=== PATIENT | female | born 1985 | race African-American/Black ===

== ENCOUNTER 2017-03-25 20:46 | Emergency (ER) | payer OTHER ==
[2017-03-25 21:02] VITALS: BP 118/73; PULSE 87; TEMP 99.1; BMI 20.7
--- NOTE | 2017-03-25 21:02 | PDOC ---
Rapid Medical Evaluation Time Seen by Provider: 03/25/17 20:54 Medical Evaluation: Allergies Allergy/AdvReac Type Severity Reaction Status Date / Time No Known Allergies Allergy Verified 06/19/15 09:51 03/25/17 20:54 I have performed a brief in-person evaluation of this patient. The patient presents with a chief complaint of: chest pain x 1 week, SOB, dry cough, headache, fatigue x 1 week. Sneezing today. Denies fever but +chills. Denies nausea, vomiting, diarrhea +use of hormonal contraceptive (depo) Pertinent physical exam findings: lungs ctab I have ordered the following: EKG, CXR The patient will proceed to the ED for further evaluation. Discharge Disposition - Diagnosis Chest pain - Referrals Referrals: Manuel Lynn MD [Primary Care Provider] - - Patient Instructions - Post Discharge Activity
--- NOTE | 2017-03-25 21:48 | PDOC ---
History of Present Illness <Meena Campbell - Last Filed: 03/26/17 00:16> - General History Source: Patient Exam Limitations: No Limitations - History of Present Illness Initial Comments: 03/26/17 01:47 Patient is a 31 year old female with no significant past medical history who presents to the ED with complaints of of chest pain that began thursday afternoon. Patient reports experiencing intermittent chest pain as well as dry cough since thursday afternoon, that has shown no signs of subsiding. She reports experiencing increased pain with cough as well as runny nose. Patient reports she did receive this years flu shot. Denies sore throat, sob. Denies fevers, chills. Denies nausea, vomiting. Denies contact with sick individuals, out of state travelling. Denies any other symptoms. 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 No alcohol. No illicit drugs. Surgical history: None PMD: Dr. Lynn <Paulo Hendrix - Last Filed: 03/26/17 01:48> - General Chief Complaint: Chest Pain Stated Complaint: CHEST PAIN,SOB Time Seen by Provider: 03/25/17 20:54 Past History - Past Medical History Asthma: Yes COPD: No - Suicide/Smoking/Psychosocial Hx Smoking History: Never smoked Have you smoked in the past 12 months: No Number of Cigarettes Smoked Daily: 1 Information on smoking cessation initiated: No Hx Alcohol Use: No Drug/Substance Use Hx: No Substance Use Type: None <Meena Campbell - Last Filed: 03/26/17 00:16> <Paulo Hendrix - Last Filed: 03/26/17 01:48> - Past Medical History Allergies/Adverse Reactions: Allergies Allergy/AdvReac Type Severity Reaction Status Date / Time No Known Allergies Allergy Verified 03/26/17 00:16 Home Medications: Ambulatory Orders Ibuprofen [Motrin -] 600 mg PO TID PRN #15 tablet 03/26/17 Review of Systems - Review of Systems Able to Perform ROS?: Yes Comments:: 03/26/17 01:47 GENERAL/CONSTITUTIONAL: No fever or chills. No weakness. HEAD, EYES, EARS, NOSE AND THROAT: No change in vision. No ear pain or discharge. No sore throat. GASTROINTESTINAL: No nausea, vomiting, diarrhea or constipation. GENITOURINARY: No dysuria, frequency, or change in urination. CARDIOVASCULAR: No chest pain or shortness of breath. RESPIRATORY: No cough, wheezing, or hemoptysis. MUSCULOSKELETAL: No joint or muscle swelling or pain. No neck or back pain. SKIN: No rash NEUROLOGIC: No headache, vertigo, loss of consciousness, or change in strength/ sensation. ENDOCRINE: No increased thirst. No abnormal weight change. HEMATOLOGIC/LYMPHATIC: No anemia, easy bleeding, or history of blood clots. ALLERGIC/IMMUNOLOGIC: No hives or skin allergy. All Other Systems: Reviewed and Negative <Paulo Hendrix - Last Filed: 03/26/17 01:48> *Physical Exam - Vital Signs Last Vital Signs Temp Pulse Resp BP Pulse Ox 99.1 F 87 18 118/73 100 03/25/17 20:54 03/25/17 20:54 03/25/17 20:54 03/25/17 20:54 03/25/17 20:54 <Meena Campbell - Last Filed: 03/26/17 00:16> - Vital Signs Last Vital Signs Temp Pulse Resp BP Pulse Ox 99.1 F 87 18 118/73 100 03/25/17 20:54 03/25/17 20:54 03/25/17 20:54 03/25/17 20:54 03/25/17 20:54 - Physical Exam Comments: 03/26/17 01:47 GENERAL: Awake, alert, and fully oriented, in no acute distress HEAD: No signs of trauma EYES: PERRLA, EOMI, sclera anicteric, conjunctiva clear ENT: Auricles normal inspection, hearing grossly normal, nares patent, oropharynx clear without exudates. Moist mucosa NECK: Normal ROM, supple, no lymphadenopathy, JVD, or masses LUNGS: +Soft expiratory wheeze. Breath sounds equal, clear to auscultation bilaterally. No wheezes, and no crackles HEART: Regular rate and rhythm, normal S1 and S2, no murmurs, rubs or gallops CHEST: +Anterior chest wall discomfort that reproduced pain. ABDOMEN: Soft, nontender, normoactive bowel sounds. No guarding, no rebound. No masses EXTREMITIES: Normal range of motion, no edema. No clubbing or cyanosis. No cords, erythema, or tenderness NEUROLOGICAL: Cranial nerves II through XII grossly intact. Normal speech, normal gait SKIN: Warm, Dry, normal turgor, no rashes or lesions noted. <Paulo Hendrix - Last Filed: 03/26/17 01:48> ED Treatment Course - ADDITIONAL ORDERS Additional order review: Laboratory Results 03/25/17 22:15 Beta HCG, Quant 11.1 03/25/17 22:15 Influenza Types A,B Antigen (JAROD) - Final Nasopharyngeal Swab - Final - Medications Given in the ED: ED Medications Discontinued Medications Generic Name Dose Route Start Last Admin Trade Name Judie PRN Reason Stop Dose Admin Acetaminophen 975 mg 03/25/17 21:53 03/25/17 22:35 Tylenol - PO 03/25/17 21:54 975 mg ONCE ONE Administration Albuterol/Ipratropium 1 amp 03/25/17 21:53 03/25/17 22:35 Duoneb - NEB 03/25/17 21:54 1 amp ONCE ONE Administration Ketorolac Tromethamine 60 mg 03/25/17 21:53 03/25/17 22:35 Toradol Injection - IM 03/25/17 21:54 60 mg ONCE ONE Administration <Paulo Hendrix - Last Filed: 03/26/17 01:48> Medical Decision Making - Medical Decision Making 03/25/17 22:44 a/p: 31yo female with cp when coughing -rhinorrhea -suspect flu vs viral flu like illness -will check cxr -neb -flu swab -nontoxic in appearance -anterior chest wall ttp - most likely from coughing 03/26/17 00:08 cxr clear pt with flu b stable for d/c to home nontoxic in appearance symptoms since thursday so not a candidate for tamiflu will give work note since she works in a [employer]. discussed all lab and imaging results pt is stable for d/c to home 03/26/17 00:11 pt with elevated beta hcg - will need it repeated in 2 days on depo provera 03/26/17 00:16 pt with a miscarriage in february. had ultrasound at her OB office that showed an empty uterus per the patient. received the depo shot after the miscarriage. states they have been trending her beta hcg will follow up with her ob.diagnostics tech for a repeat beta again to show continued decreasing hcg <Meena Campbell Last Filed: 03/26/17 00:16> *DC/Admit/Observation/Transfer - Discharge Dispostion Admit: No - Attestations Physician Attestion: 03/26/17 00:10 I, Dr. Meena Campbell DO, attest that this document has been prepared under my direction and personally reviewed by me in its entirety. I further attest, that it accurately reflects all work, treatment, procedures and medical decision -making performed by me. <Meena Campbell - Last Filed: 03/26/17 00:16> - Attestations Scribe Attestion: 03/26/17 01:48 Documentation prepared by Paulo Hendrix, acting as certified medical records coder for Meena Campbell DO, MD/. <Paulo Hendrix - Last Filed: 03/26/17 01:48> Diagnosis at time of Disposition: Chest pain, Influenza B - Discharge Dispostion Disposition: HOME Condition at time of disposition: Stable - Prescriptions Prescriptions: Ibuprofen [Motrin -] 600 mg PO TID PRN #15 tablet PRN Reason: Pain - Referrals Referrals: Manuel Lynn MD [Primary Care Provider] - - Patient Instructions Printed Discharge Instructions: DI for Atypical Chest Pain, DI for Influenza - - Adult Additional Instructions: Please drink plenty of fluids. Please make an appointment to follow up with your PMD. Please take tylenol or motrin for the pain. Please return to the ED with any further concerns. Please have your beta hcg repeated in 2 days. - Post Discharge Activity Forms/Work/School Notes: Back to Work
[2017-03-25] MEDS ORDERED: KETOROLAC TROMETHAMINE 30 MG/1 ML VIAL IM ONE (21:53)
[2017-03-25] MEDS ORDERED: ALBUTEROL SO4 2.5/IPRATROPIUM 0.5 INH SOL 3 ML VIAL.NEB. NEB ONE ×2 (21:53→22:24)
[2017-03-25] MEDS ORDERED: ACETAMINOPHEN 325 MG TABLET (FP) PO ONE (21:53)
[2017-03-25] MEDS ORDERED: ACETAMINOPHEN 325 MG TABLET (FP) ONE (22:24)
[2017-03-25] MEDS ORDERED: KETOROLAC TROMETHAMINE 60 MG/2 ML VIAL ONE (22:24)
[2017-03-25] MEDS ORDERED: METOCLOPRAMIDE HCL INJECTION 10 MG/2 ML VIAL ONE (22:26)
[2017-03-25] MEDS ORDERED: MAG HYDROX/AL HYDROX/SIMETH 30 ML UNIT-DOSE CUP ONE (22:26)
[2017-03-25] MEDS ORDERED: CEPHALEXIN MONOHYDRATE 250 MG CAPSULE (FP) ONE (22:26)
[2017-03-25] MEDS ORDERED: FAMOTIDINE 20 MG/50 ML IVPB 20 MG/50 ML MG IVPB ONE (22:27)
--- NOTE | 2017-03-27 10:12 | EKG ---
Test Reason : Blood Pressure : / mmHG Vent. Rate : 085 BPM Atrial Rate : 085 BPM P-R Int : 156 ms QRS Dur : 070 ms QT Int : 354 ms P-R-T Axes : 074 078 057 degrees QTc Int : 421 ms NORMAL SINUS RHYTHM POSSIBLE LEFT ATRIAL ENLARGEMENT BORDERLINE ECG NO PREVIOUS ECGS AVAILABLE Confirmed by MD NAOMI, PHIL ([id number]) on 03/27/2017 10:12:14 AM Referred By: Confirmed By:PHIL SALGADO MD
== END 2017-03-26 00:29 | disposition home or self-care (01) ==
LOC: JER 20:46
PROC: 3E0F7GC Introduction of Other Therapeutic Substance into Respiratory Tract, Via Natural or Artificial Opening (ICD-10-PCS; principal; 2017-03-25)
PROC: 3E0233Z Introduction of Anti-inflammatory into Muscle, Percutaneous Approach (ICD-10-PCS; 2017-03-25)
DX: J10.1 Influenza due to other identified influenza virus with other respiratory manifestations (principal); R07.9 Chest pain, unspecified
CPT/HCPCS: 36415; 71046-TC; 84702; 87804; 93005; 93010; 99283-25

== ENCOUNTER 2019-03-29 11:36 | Day surgery (SDC) | payer OTHER ==
[2019-03-29 12:10] VITALS: BMI 21.6
[2019-03-29 13:20] LABS: BASO % 1.1 % (0-2.0); EOS % 5.3 % (0-4.5); HEMATOCRIT 37.3 % (32.4-45.2); HEMOGLOBIN 12.6 GM/dL (10.7-15.3); LYMPH % 35.7 % (8-40); MCH 31.7 pg (25.7-33.7); MCHC 33.7 g/dl (32.0-36.0); MEAN CELL VOLUME 93.9 fl (80-96); MEAN PLT VOLUME 6.7 fl (7.5-11.1); MONO % 9.2 % (3.8-10.2); NEUT % 48.7 % (42.8-82.8); PLATELET COUNT 287 K/MM3 (134-434); RBC 3.97 M/mm3 (3.60-5.2); RDW 13.1 % (11.6-15.6); WHITE BLOOD COUNT 5.2 K/mm3 (4.0-10.0)
--- NOTE | 2019-03-29 13:34 | PDOC ---
History of Present Illness - General Chief Complaint: Pain Stated Complaint: 6WKS/ CRAMPING Time Seen by Provider: 03/29/19 12:37 - History of Present Illness Initial Comments: 03/29/19 13:28 Ms. Lockett is a 33y/o 6 weeks who presents with intermittent abdominal cramping x 4 days. She was going for a surgical today and was found on U/S to have a right side ectopic . Last LMP was February 09. She reports nausea, vomiting, breast tenderness. She denies fever, chills. Pt had spotting for 2 days about 2 weeks ago. She has hx of chlamydia but no PID. She is not on BC or IUD. Past History - Past Medical History Allergies/Adverse Reactions: Allergies Allergy/AdvReac Type Severity Reaction Status Date / Time No Known Allergies Allergy Verified 03/29/19 12:06 Home Medications: Ambulatory Orders Acetaminophen [Tylenol .Regular Strength -] 500 mg PO Q4H PRN #30 tablet Ibuprofen [Motrin -] 600 mg PO QID #28 tablet 03/30/19 Asthma: Yes COPD: No - Surgical History Abdominal Surgery: No - Family Medical History Other Family History: sister- ectopic - Reproductive History Is Patient Now?: Yes (#): 8 Para: 1 - Psycho Social/Smoking Cessation Hx Smoking History: Never smoked Have you smoked in the past 12 months: No Number of Cigarettes Smoked Daily: 1 Hx Alcohol Use: No Drug/Substance Use Hx: No Substance Use Type: None *Physical Exam - Vital Signs Last Vital Signs Temp Pulse Resp BP Pulse Ox 98.2 F 75 17 102/58 L 100 03/29/19 12:06 03/29/19 12:06 03/29/19 12:06 03/29/19 12:06 03/29/19 12:06 - Physical Exam General Appearance: Yes: Nourished, Appropriately Dressed HEENT: positive: EOMI, SUSIE, Normal Voice Neck: positive: Trachea midline, Supple Respiratory/Chest: positive: Lungs Clear Cardiovascular: positive: Regular Rhythm, Regular Rate. negative: Murmur Gastrointestinal/Abdominal: positive: Normal Bowel Sounds. 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 Lockett is a 33y/o 6 weeks who presents with intermittent abdominal cramping x 4 days. Vital signs stable, A&Ox3. R/O ectopic vs less likely gastroenteritis. TVUS, labs, and EKG ordered. 03/29/19 15:16 TVUS shows right adnexal ectopic with free fluid. Ruptured cannot be excluded. Spoke to Dr. Alegre, and she will see the pt. 03/29/19 17:15 Pt was evaluated by Dr. Alegre and determined to need surgical evaluation. She accepted pt to her service and sent to OR. Discharge - Discharge Information Problems reviewed: Yes Clinical Impression/Diagnosis: Ectopic Qualifiers: Location of ectopic : tubal Intrauterine status: without intrauterine Laterality: unspecified laterality Qualified Code(s): O00.109 - Unspecified tubal without intrauterine Condition: Stable Disposition: HOME - Additional Discharge Information - Follow up/Referral - Patient Discharge Instructions - Post Discharge Activity
[2019-03-29 13:46] LABS: ALBUMIN 4.2 g/dl (3.4-5.0); BILIRUBIN,TOTAL 0.5 mg/dL (0.2-1); BLOOD UREA NITROGEN 4.6 mg/dL (7-18); CALCIUM 8.9 mg/dL (8.5-10.1); CREATININE 0.6 mg/dL (0.55-1.3); POTASSIUM 3.4 mmol/L (3.5-5.1); TOT PROT 7.7 g/dl (6.4-8.2)
[2019-03-29 13:46] LABS: PH,URINE 6.5 (5.0-8.0); URINE APPEARANCE CLEAR; URINE BILIRUBIN NEGATIVE (NEGATIVE); URINE COLOR YELLOW; URINE GLUCOSE (UA) NEGATIVE (NEGATIVE); URINE KETONE 1+ (NEGATIVE); URINE LEUK ESTERASE NEGATIVE (NEGATIVE); URINE NITRITE NEGATIVE (NEGATIVE); URINE PROTEIN TRACE (NEGATIVE)
--- NOTE | 2019-03-29 14:21 | PDOC ---
Documentation entered by Syed Saab SCRIBE, acting as scribe for Axel Casarez MD. Axel Casarez MD: This documentation has been prepared by the [employer], SCRIBE, under my direction and personally reviewed by me in its entirety. I confirm that the documentation accurately reflects all work, treatment, procedures, and medical decision making performed by me. Attending Attestation - Resident Resident Name: StacieAdeline - ED Attending Attestation I have performed the following: I have examined & evaluated the patient, The case was reviewed & discussed with the resident, I agree w/resident's findings & plan, Exceptions are as noted - HPI HPI: 03/29/19 13:29 The patient is a 33 year old female, A7, currently 6 weeks with no significant PMH of who presents to the emergency department for abdominal cramping. Pt states she went to the clinic today and US showed R ectopic . Pt denies any vaginal bleeding or discharge. The patient denies chest pain, shortness of breath, headache and dizziness. Denies fever, chills, cough, nausea, vomiting, diarrhea and constipation. Denies dysuria, frequency, urgency and hematuria. 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 No alcohol. No illicit drugs. PCP: Dr. Sol - Physicial Exam PE: 03/29/19 13:30 GENERAL: Awake, alert, and fully oriented, in no acute distress. HEAD: No signs of trauma EYES: PERRLA, EOMI, sclera anicteric, conjunctiva clear ENT: Auricles normal inspection, hearing grossly normal, nares patent, oropharynx clear without exudates. Moist mucosa NECK: Nontender, no stepoffs, Normal ROM, supple, no lymphadenopathy, JVD, or masses LUNGS: Breath sounds equal, clear to auscultation bilaterally. No wheezes, and no crackles HEART: Regular rate and rhythm, normal S1 and S2, no murmurs, rubs or gallops ABDOMEN: + suprapubic TTP, normoactive bowel sounds. No guarding, no rebound. No masses EXTREMITIES: Normal range of motion, no edema. No clubbing or cyanosis. No cords, erythema, or tenderness NEUROLOGICAL: Cranial nerves II through XII intact. 5/5 strength and sensation in all extremities, Normal speech, normal gait, normal cerebellar function SKIN: Warm, Dry, normal turgor, no rashes or lesions noted. - Medical Decision Making 03/29/19 14:22 33 F with possible R ectopic on outpt US. - Labs, HCG, T&S - TVUS - OB c/s 03/29/19 15:44 Labs notable for HCG 29153 TVUS shows R adnexal mass, likely ectopic, with free fluid, concerning for rupture Dr. Alegre consulted, will come to ED to evaluate pt. 03/29/19 16:[address] Alegre, who will take pt to OR
[2019-03-29 14:27] LABS: INR 1.11 (0.83-1.09); PROTHROMBIN TIME (PATIENT) 13.1 SEC (9.7-13.0)
[2019-03-29 14:30] LABS: ACTIVATED PTT 32.1 SECONDS (25.2-36.5)
[2019-03-29] MEDS ORDERED: DEXAMETHASONE SOD PHOSPHATE 4 MG/1 ML VIAL ONE (16:55)
[2019-03-29] MEDS ORDERED: fentaNYL CITRATE 250 MCG/5 ML VIAL ONE (16:55)
[2019-03-29] MEDS ORDERED: GLYCOPYRROLATE 0.2 MG/1 ML VIAL ONE ×5 (16:55→19:01)
[2019-03-29] MEDS ORDERED: ROCURONIUM BROMIDE 50 MG/5 ML SYRINGE ONE (16:55)
[2019-03-29] MEDS ORDERED: MIDAZOLAM HCL 2 MG/2 ML SINGLE DOSE VIAL ONE (16:55)
[2019-03-29] MEDS ORDERED: PROPOFOL 20 ML ONE ×3 (16:55→17:29)
[2019-03-29] MEDS ORDERED: LIDOCAINE HCL/PF 2% SDV 5ML VIAL ONE (16:55)
[2019-03-29] MEDS ORDERED: LIDOCAINE HCL 2% JELLY (5 ML/TUBE) ONE (16:55)
[2019-03-29] MEDS ORDERED: EPHEDRINE SULFATE/0.9% NACL/PF 50 MG/10 ML SYRINGE NR ONE (16:55)
--- NOTE | 2019-03-29 16:55 | CON.OBG ---
Consult Consult Specialty:: relations specialist Referred by:: Hermleindo/Kareem Reason for Consultation:: ectopic pregn rt side - History of Present Illness Chief Complaint: 33yrs , lmp 02/09/19 , 7 weeks gestation is diagnosed ectopic is beng taken for definitive treatment surgiclly History of Present Illness: pt went to [place] for , after ulrasound she was told she had ectopic , she was sent to nearest [facility] ED , she walked out from there & came to [facility] ED work up revealed Quant hcg 14, 254.8 sono done NO iup, em thick, 1 cm intramual fibroid 2.7x 2.5x 2 cm adnexa mass bet uterus & rt ovary , lt ovary normal, minmal fluid in cul desac Pa MH 28-30 days, reg cycle x 3-4 bleeding, no cramps Contraception None Pa Ob Hx G1 2005 7'1" in [facility] G2 & G3 Sp AB G4, G5 G6, G7 : 4 Ind AB early pregn STD h/o chlamydia in past - History Source History Provided By: Patient Limitations to Obtaining History: No Limitations - 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 No: Gastritis Renal/: No: UTI Reproductive: Yes: Ectopic (current pregn ). No: PID (declined) ...LMP: 02/09/19 ...: Yes ...: 8 ...Para: 1 Infectious Disease: Yes: STD's (h/o chlamydia in past ) Psych: No: Addictions, Anxiety, Bipolar, Depression, Panic, Psychosis, Schizophrenia, Other Musculoskeletal: Yes: Other (declines) ENT: Yes: Other (declines) Endocrine: Yes: Other (none ) - Past Surgical History Past Surgical History: Yes: None - Alcohol/Substance Use Hx Alcohol Use: Yes (wine 1-2 glasses twice a month) History of Substance Use: reports: Marijuana Date of Last Use: 03/28/19 (daily bid ) - Smoking History Smoking history: Never smoked Have you smoked in the past 12 months: No Aproximately how many cigarettes per day: 1 Home Medications - Allergies Allergies/Adverse Reactions: Allergies Allergy/AdvReac Type Severity Reaction Status Date / Time No Known Allergies Allergy Verified 03/29/19 12:06 - Home Medications Home Medications: Ambulatory Orders NK [No Known Home Medication] 03/29/19 Physical Exam-GANG KNIFE [employer]PER Vital Signs: Vital Signs Temperature 98.5 F 03/29/19 15:05 Pulse Rate 72 03/29/19 15:05 Respiratory Rate 18 03/29/19 15:05 Blood Pressure 101/64 03/29/19 15:05 O2 Sat by Pulse Oximetry (%) 100 03/29/19 15:05 Selected Entries 03/29/19 12:06 Weight 138 lb Laboratory Tests 03/29/19 03/29/19 03/29/19 12:55 13:06 13:06 PT with INR 13.10 H INR 1.11 H PTT (Actin FS) 32.1 AST 16 ALT 19 Beta HCG, Quant 09512.8 Constitutional: Yes: Anxious, Thin Eyes: Yes: WNL HENT: Yes: WNL Neck: Yes: WNL Cardiovascular: Yes: WNL Respiratory: Yes: WNL Gastrointestinal: Yes: WNL, Normal Bowel Sounds, Soft. No: Distention, Tenderness Renal/: Yes: WNL, . No: CVA Tenderness - Left, CVA Tenderness - Right , Vaginal Bleeding Pelvis: Yes: WNL External Genitalia: Yes: Normal Internal Exam Deferred: Yes Vaginal Exam: Yes: Normal Cervix: Yes: Normal. No: Cerv Motion Tenderness Uterus: Yes: Normal, Anteverted (deviated to left side) Adnexa: Not Palpable: Bilateral (not tender ) Breast(s): Yes: WNL Musculoskeletal: Yes: WNL Extremities: Yes: WNL. No: Calf Tenderness Edema: No Psychiatric: Yes: WNL, Alert, Oriented Labs: CBC, BMP 03/29/19 12:55 03/29/19 13:06 Laboratory Tests 03/29/19 03/29/19 03/29/19 12:55 12:55 13:06 PT with INR 13.10 H INR 1.11 H PTT (Actin FS) 32.1 AST ALT Beta HCG, Quant 94529.8 Urine Protein Trace Urine Glucose (UA) Negative Urine Ketones 1+ H 03/29/19 13:06 PT with INR INR PTT (Actin FS) AST 16 ALT 19 Beta HCG, Quant Urine Protein Urine Glucose (UA) Urine Ketones Problem List - Problems (1) Ectopic , tubal Code(s): O00.109 - UNSPECIFIED TUBAL WITHOUT INTRAUTERINE Qualifiers: Intrauterine status: without intrauterine Laterality: right Qualified Code(s): O00.101 - Right tubal without intrauterine Assessment/Plan 33 yrs , 7 weeeks gestation, us in favor of ectopic, no iup, rt adnexal 2.7cm mass, hcg 14, 254.8 pt does not meet the crtteria for methotrexate inj hence sugical management offerred r/b/a not ltd yo hemorrhage, infection, injury bladde, bowel ureter etc explained plan Laproscopy , Rt salpingectomy & necessary procedures
[2019-03-29] MEDS ORDERED: LACTATED RINGERS SOLUTION 1,000 ML/1,000 ML INFUS.BAG IV STA (17:07)
[2019-03-29] MEDS ORDERED: ONDANSETRON 4 MG/2 ML VIAL IVPUSH PRN (17:12)
[2019-03-29] MEDS ORDERED: oxyCODONE HCL 5 MG TABLET PO PRN ×2 (17:12)
[2019-03-29] MEDS ORDERED: ceFAZolin SODIUM 1 GM VIAL IVPB ONE (18:05)
[2019-03-29] MEDS ORDERED: BUPIVACAINE HCL/PF 0.5% (5 MG/ML) 30 ML VIAL IJ ONE (18:10)
[2019-03-29] MEDS ORDERED: NEOSTIGMINE METHYLSULFATE 0.5 MG/ML - 10 ML MDV ONE (18:44)
--- NOTE | 2019-03-29 19:27 | OP ---
Operative Note - Note: Operative Date: 03/29/19 Pre-Operative Diagnosis: Right Tubal Operation: D&C Laproscopy, Rt Salpingectomy Findings: ut bulky, uterocervical length 9cm em cavity curetted, no tissuse obtained zumi canula was inserted & removed at the end of procedure Lt Tube & ovary Normal Rt tube distended proximal ampullary & isthmic portion distended & bluish discoloration removed in entire length RT ovary normal Surgeon: Rosmery Alegre Senior Fire Protection Engineer: Olga Dayl (TRISHA) Anesthesiologist/PERLITE GRINDER: Farhat Gomez Anesthesia: General Specimens Removed: em sampling. Rt tube Estimated Blood Loss (mls): 10 Drains, Volume Out (mls): 75 Fluid Volume Replaced (mls): 1,000 (2 gm iv ancef was given ) Operative Report Dictated: Yes
[2019-03-29] MEDS ORDERED: KETOROLAC TROMETHAMINE 30 MG/1 ML VIAL ONE (19:35)
[2019-03-29] MEDS ORDERED: ACETAMINOPHEN 1000 MG/100 ML VIAL (NON FORMULARY) IVPB ONE (19:36)
[2019-03-29] MEDS ORDERED: KETOROLAC TROMETHAMINE 30 MG/1 ML VIAL IVPUSH ONE (19:36)
--- NOTE | 2019-03-29 19:38 | SURG ---
Surgery Advisor To Command In Combat Note Advisor To Command In Combat: Olga Daly PA-C Date of Service: 03/29/19 Diagnosis: Right Tubal Procedure: D&C Laproscopy, Rt Salpingectomy I was present for the entirety of the operative procedure. For further detail, please refer to operative report. Visit type - Case Type Case Type: ED Admission - Emergency Emergency Visit: Yes Care time: The patient presented to the Emergency Department on the above date and was hospitalized for further evaluation of their emergent condition. - New patient This patient is new to me today: Yes Date on this admission: 03/29/19
[2019-03-29] MEDS ORDERED: ACETAMINOPHEN 325 MG TABLET (FP) PO PRN (19:50)
[2019-03-29] MEDS: LACTATED RINGERS SOLUTION 1,000 ML IV SCH (20:45)
[2019-03-30] MEDS: LACTATED RINGERS SOLUTION 1,000 ML IV SCH ×2 (00:19→06:36)
--- NOTE | 2019-03-30 08:17 | DS ---
Physical Exam-AREA REPRESENTATIVE Vital Signs: Vital Signs Temperature 98.4 F 03/30/19 05:18 Pulse Rate 85 03/30/19 05:18 Respiratory Rate 18 03/30/19 05:18 Blood Pressure 100/52 L 03/30/19 05:18 O2 Sat by Pulse Oximetry (%) 98 03/29/19 23:12 Constitutional: Yes: Well Nourished, Other (pain scale 5-6/10) Eyes: Yes: WNL HENT: Yes: WNL Neck: Yes: WNL Cardiovascular: Yes: WNL Respiratory: Yes: WNL Gastrointestinal: Yes: WNL, Normal Bowel Sounds, Soft Renal/: Yes: WNL Edema: No Wound/Incision: Yes: Clean/Dry, Well Approximated, Steri Strips, Open to air Neurological: Yes: WNL ...Motor Strength: WNL Psychiatric: Yes: WNL Labs: CBC, BMP 03/29/19 12:55 03/29/19 13:06 Laboratory Tests 03/30/19 03/30/19 06:00 08:47 WBC 7.4 Hgb 11.3 Hct 32.9 Plt Count 264 Beta HCG, Quant 4642.7 Discharge Summary Problems reviewed: Yes Reason For Visit: ECTOPIC Current Active Problems Ectopic , tubal (Acute) Procedures: Principal: D&C , Laproscopic Rt Salpingectomy Hospital Course: uneventful Plan of Treatment: follow up in the clinic Condition: Stable - Instructions Diet, Activity, Other Instructions: Discharge Instructions * Out of Bed * RTC 2 weeks for f/u , call [phone] [place] [address]'s [facility] for follow up on Thursday04/12/[address] Alegre * Regular Diet * Julia Care * Avoid sex for 3 weeks If you experience excessive bleeding or fever over 101 degrees, call doctor, the clinic or go to the Emergency Room. Referrals: Manuel Lynn MD [Primary Care Provider] - Rosmery Alegre MD [Staff Physician] - Disposition: HOME - Home Medications Comprehensive Discharge Medication List: Ambulatory Orders Acetaminophen [Tylenol .Regular Strength -] 500 mg PO Q4H PRN #30 tablet Ibuprofen [Motrin -] 600 mg PO QID #28 tablet 03/30/19
[2019-03-30 09:35] LABS: BASO % 0.3 % (0-2.0); HEMATOCRIT 32.9 % (32.4-45.2); HEMOGLOBIN 11.3 GM/dL (10.7-15.3); LYMPH % 9.7 % (8-40); MCH 32.3 pg (25.7-33.7); MCHC 34.3 g/dl (32.0-36.0); MEAN CELL VOLUME 94.1 fl (80-96); MONO % 6.2 % (3.8-10.2); NEUT % 83.8 % (42.8-82.8); PLATELET COUNT 264 K/MM3 (134-434); RDW 12.8 % (11.6-15.6); WHITE BLOOD COUNT 7.4 K/mm3 (4.0-10.0)
--- NOTE | 2019-03-30 10:05 | EKG ---
Test Reason : Blood Pressure : / mmHG Vent. Rate : 070 BPM Atrial Rate : 070 BPM P-R Int : 136 ms QRS Dur : 074 ms QT Int : 386 ms P-R-T Axes : 000 073 042 degrees QTc Int : 416 ms NORMAL SINUS RHYTHM NORMAL ECG WHEN COMPARED WITH ECG OF 25-MAR-2017 20:52, NO SIGNIFICANT CHANGE WAS FOUND Confirmed by NIDA PURI MD ([id number]) on 03/30/2019 10:05:14 AM Referred By: Confirmed By:NIDA PURI MD
[2019-03-30 11:32] VITALS: BP 95/60; PULSE 82; TEMP 98.2
--- NOTE | 2019-03-30 18:14 | OP ---
DATE OF OPERATION: 03/29/2019 PREOPERATIVE DIAGNOSIS: Right tubal . POSTOPERATIVE DIAGNOSIS: Right tubal . OPERATION DONE: Dilation and curettage, laparoscopy, right salpingectomy. 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 Her hCG was 14, 254.8, and sonogram shows no IUP and the right side between over the ovary and uterus, right adnexa was 2.7 x 2 x 2.5 cm structure with fluid inside. There were no embryonic poles seen. There is small amount of free fluid into the cul-de-sac noted. Ectopic was diagnosis. DESCRIPTION OF PROCEDURE: Patient taken to the operating room table, and general anesthesia was given. Modified lithotomy position was given. Abdomen was painted with chloroprep , and pubis, perineum, vagina were painted with Betadine, was draped in usual manner. Pelvic examination was done. Uterus was anteverted, deviated to the left side. Adnexa was not palpable. Then weighted speculum was put. Anterior lip of the cervix and was held with a single-tooth tenaculum. Uterocervical length was 9 cm. Then, with a small curette, uterine cavity was curetted. Minimal tissue was obtained, sent to Pathology examination and then EDIE cannula was introduced into the uterine cavity. Tenaculum and weighted speculum were removed. Gibbs catheter was placed. Proceeded with the laparoscopy. Just below the umbilicus, small incision was made and Veress needle was introduced, and the CO2 was insufflated into the peritoneal cavity and then 5-mm trocar and cone cannula were introduced. Right side tubal was confirmed. From the left side, 5-mm trocar and cannula were introduced. On the right side, initially a 5 mm and then later on it was changed to 10-mm trocar and cannula. Pelvic viscera was inspected. The uterus was bulky. Left tube and ovary were normal. Right tube was distended from the stomach area to the proximal ampullary portion. It was distended and bluish discoloration, and the fimbria end was free and then right ovary was normal. The grasper was introduced from the right side, and the tube was held & ligature was introduced from the left portal.. Grasper was held just below the tubal free end and between the ovary, mesosalpinx was clamped, cauterized, and cut, and it was advanced. Then, from the proximal end, the tube was cauterized and cut. Just below the distended portion, the tube was cauterized and cut from the mesosalpinx, and the whole tube and entire length was thus freed. Hemostasis was verified. Irrigation was done and then Endo Catch was introduced from the right portal. The entire specimen of the right tube was removed along with Endo Catch. Then irrigation done. Hemostasis verified. Then Farhat-Alber introducer was placed from the opening and 0 Vicryl free tie was introduced, and it was tied. Then subcutaneous tissue was closed with 2-0 Vicryl, and the skin was closed with 4-0 Biosyn. Similarly, the left side deep stitches were taken with a 2-0 Vicryl, and the skin was approximated with a 4-0 Biosyn. The Steri-Strips were applied. Umbilical incision was closed with a 4- 0 Biosyn. Pressure dressing given and then EDIE cannula was removed. Gibbs output was 75 mL, and intraoperative urine output was 75 mL. She received 2 g of IV Ancef prior to the incision. She received 1000 mL of crystalloid solution during the surgery. She tolerated the procedure well and was transferred to the recovery room in stable condition. Joel [id number] MTDD
--- NOTE | 2019-03-31 09:22 | PATH ---
Surgical Pathology Report Patient Name: PRINCESS ARLEN [facility]. Rec. #: [id number] /Age/Gender: 1985 (Age: 33) / F Account: <[id number]> Location: [address] [place] [id number] Taken: 03/29/2019 Received: 03/30/2019 Reported: 03/31/2019 Physicians: Rosmery Alegre M.D. Specimen(s) Received A: ENDOMETRIAL CURETTINGS B: RIGHT FALLOPIAN TUBE Clinical History Ectopic No IUP, right adnexal (tubal) mass Final Diagnosis A. ENDOMETRIUM, CURETTING: HYPERSECRETORY ENDOMETRIUM AND BENIGN ENDOCERVICAL EPITHELIUM. NO ENDOMETRIAL HYPERPLASIA OR CARCINOMA IDENTIFIED. B. RIGHT FALLOPIAN TUBE, SALPINGECTOMY: ECTOPIC (TUBAL) AND BENIGN SEROUS PARATUBAL CYST. Electronically Signed Daniel Lujan M.D. Gross Description A. Received in formalin labeled "endometrial curettings," is a 1.8 x 1.3 x 0.3 cm aggregate of ball-red soft tissue fragments admixed with mucus. The formalin is filtered and the specimen is entirely submitted in one cassette. B. Received in formalin labeled "right fallopian tube," is a 5 cm in length buckner purple, focally dilated portion of fallopian tube. The fimbria are separately received within the same container and display a 0.6 cm greatest dimension attached paratubal cyst. Sectioning of the fallopian tube displays a focally dilated lumen. There is possible villous tissue identified within the lumen. No somatic tissue is identified. Nuclear Equipment Test Engineer sections are submitted in 3 cassettes as follows: 1-cross sections of fallopian tube with probable villous tissue; 2-additional cross sections of fallopian tube; 3-fimbria and paratubal cyst. DL/03/30/2019 saudi/03/30/2019
== END 2019-03-30 12:39 | disposition home or self-care (01) ==
LOC: JER 11:36 → JASUSAT 16:44 → JDEL 16:44 → J6S 21:36 → JASUSAT 03-30 12:39
PROVIDERS: ATTEND Obstetrics & Gynecology
PROC: 10T24ZZ Resection of Products of Conception, Ectopic, Percutaneous Endoscopic Approach (ICD-10-PCS; principal; 2019-03-29 17:00)
PROC: 0UB54ZZ Excision of Right Fallopian Tube, Percutaneous Endoscopic Approach (ICD-10-PCS; 2019-03-29 17:00)
DX: O00.101 Right tubal pregnancy without intrauterine pregnancy (principal)
CPT/HCPCS: 36415; 76817-TC; 80053; 81003; 84702; 85025; 85610; 85730; 86850; 86900; 86901; 87086; 93005; 93010; 94760; 99283-25

== ENCOUNTER 2019-04-08 12:58 | Emergency (ER) | payer OTHER ==
[2019-04-08 13:10] VITALS: BP 124/83; PULSE 95; TEMP 98.3; BMI 21.6
[2019-04-08] MEDS ORDERED: ACETAMINOPHEN 1000 MG/100 ML VIAL (NON FORMULARY) IVPB ONE (14:14)
[2019-04-08] MEDS ORDERED: ACETAMINOPHEN INJECTION 100 ML IVPB ONE (14:23)
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
== END 2019-04-08 17:27 | disposition home or self-care (01) ==
LOC: JER 12:58
PROC: 3E033NZ Introduction of Analgesics, Hypnotics, Sedatives into Peripheral Vein, Percutaneous Approach (ICD-10-PCS; principal; 2019-04-08)
DX: S05.12XA Contusion of eyeball and orbital tissues, left eye, initial encounter (principal); Y04.8XXA Assault by other bodily force, initial encounter; Y93.89 Activity, other specified; Y92.89 Other specified places as the place of occurrence of the external cause
CPT/HCPCS: 70450-TC; 70486-TC; 74177-TC; 96374; 99284-25; J0131

== ENCOUNTER 2021-09-12 10:25 | Emergency (ER) | payer OTHER ==
[2021-09-12 10:58] VITALS: BP 103/69; PULSE 82; TEMP 97.4; BMI 21.1
[2021-09-12 13:23] LABS: URINE APPEARANCE CLEAR; URINE BILIRUBIN NEGATIVE (NEGATIVE); URINE COLOR YELLOW; URINE GLUCOSE (UA) NEGATIVE (NEGATIVE); URINE KETONE NEGATIVE (NEGATIVE); URINE LEUK ESTERASE NEGATIVE (NEGATIVE); URINE NITRITE NEGATIVE (NEGATIVE); URINE PROTEIN NEGATIVE (NEGATIVE); URINE UROBILINOGEN 0.2 mg/dL (0.2-1.0)
[2021-09-12 13:28] LABS: PROTHROMBIN TIME (PATIENT) 11.5 SEC (9.7-13.0)
[2021-09-12 13:31] LABS: BASO % 1.1 % (0-2.0); EOS % 6.4 % (0-4.5); HEMOGLOBIN 12.2 GM/dL (10.7-15.3); LYMPH % 30.9 % (8-40); MCH 32.1 pg (25.7-33.7); MCHC 33.8 g/dl (32.0-36.0); MEAN CELL VOLUME 94.9 fl (80-96); MEAN PLT VOLUME 6.9 fl (7.5-11.1); MONO % 8.1 % (3.8-10.2); NEUT % 53.5 % (42.8-82.8); PLATELET COUNT 242 10^3/uL (134-434); RDW 13.2 % (11.6-15.6); WHITE BLOOD COUNT 5.2 K/mm3 (4.0-10.0)
[2021-09-12 13:47] LABS: CALCIUM 9.1 mg/dL (8.5-10.1)
[2021-09-12 13:48] LABS: ALBUMIN 3.8 g/dl (3.4-5.0); BLOOD UREA NITROGEN 8.6 mg/dL (7-18); MAGNESIUM 2.5 mg/dL (1.8-2.4)
[2021-09-12 13:51] LABS: CREATININE 0.6 mg/dL (0.55-1.3); PHOSPHOROUS 3.2 mg/dL (2.5-4.9)
[2021-09-12 13:52] LABS: BILIRUBIN,TOTAL 0.5 mg/dL (0.2-1); TOT PROT 7.5 g/dl (6.4-8.2)
== END 2021-09-12 15:43 | disposition home or self-care (01) ==
LOC: JERFT 10:25
DX: R74.01 Elevation of levels of liver transaminase levels (principal); R22.41 Localized swelling, mass and lump, right lower limb; R22.42 Localized swelling, mass and lump, left lower limb
CPT/HCPCS: 36415; 76700-TC; 76830-TC; 80053; 81003; 83735; 84100; 84439; 84443; 84702; 85025; 85610; 86803; 87086; 93970-TC; 99284-25

== ENCOUNTER 2021-11-19 14:08 | Emergency (ER) | payer OTHER ==
[2021-11-19 14:20] VITALS: BP 103/77; PULSE 70; RESP 16; TEMP 97.6
[2021-11-19 15:58] LABS: BASO % 0.9 % (0-2.0); EOS % 1.9 % (0-4.5); HEMATOCRIT 40.9 % (32.4-45.2); HEMOGLOBIN 14.4 GM/dL (10.7-15.3); LYMPH % 42.4 % (8-40); MCH 31.9 pg (25.7-33.7); MCHC 35.2 g/dl (32.0-36.0); MEAN CELL VOLUME 90.5 fl (80-96); MEAN PLT VOLUME 6.6 fl (7.5-11.1); MONO % 10.2 % (3.8-10.2); NEUT % 44.6 % (42.8-82.8); PLATELET COUNT 273 10^3/uL (134-434); RBC 4.51 M/mm3 (3.60-5.2); WHITE BLOOD COUNT 6.1 K/mm3 (4.0-10.0)
[2021-11-19 16:00] LABS: EPI CELLS >36 /uL (0-25.1); HYALINE CASTS 5 /uL (0-3.1); URINE APPEARANCE CLOUDY; URINE BACTERIA 284 /uL (0-1359); URINE BILIRUBIN NEGATIVE (NEGATIVE); URINE COLOR DK YELLOW; URINE GLUCOSE (UA) NEGATIVE (NEGATIVE); URINE KETONE 1+ (NEGATIVE); URINE LEUK ESTERASE NEGATIVE (NEGATIVE); URINE NITRITE NEGATIVE (NEGATIVE); URINE PROTEIN 1+ (NEGATIVE); URINE RBC 14 /uL (0-23.9); URINE WBC 19 /uL (0-25.8)
[2021-11-19 16:17] LABS: ALBUMIN 4.3 g/dl (3.4-5.0); CALCIUM 9.2 mg/dL (8.5-10.1)
[2021-11-19 16:18] LABS: BLOOD UREA NITROGEN 5.6 mg/dL (7-18)
[2021-11-19 16:21] LABS: CREATININE 0.6 mg/dL (0.55-1.3)
[2021-11-19 16:22] LABS: TOT PROT 8.3 g/dl (6.4-8.2)
[2021-11-19 16:23] LABS: BILIRUBIN,TOTAL 0.5 mg/dL (0.2-1)
[2021-11-19] MEDS ORDERED: POTASSIUM CHLORIDE ORAL LIQUID 20 MEQ/15 ML PO ONE (17:04)
[2021-11-19] MEDS ORDERED: POTASSIUM CHLORIDE ORAL LIQUID 20 MEQ/15 ML ONE (17:34)
== END 2021-11-19 18:59 | disposition home or self-care (01) ==
LOC: JER 14:08
DX: O20.0 Threatened abortion (principal); Z3A.01 Less than 8 weeks gestation of pregnancy
CPT/HCPCS: 36415; 76817-TC; 80053; 81003; 84702; 85025; 87086; 99284-25